=== PATIENT | male | born 1960 | race Caucasian/White ===

== ENCOUNTER → 2019-04-13 14:17 | Outpatient (CLI) | payer SELFPAY ==
--- NOTE | 2019-04-13 14:23 | US_ITS ---
PROCEDURE: US THYROID CLINICAL INDICATION: neck pain/pressure COMPARISON: No exams were available for comparison FINDINGS: Right lobe: 4.6 x 1.7 x 1.4 cm. Homogeneous echogenicity. 10 x 6 mm slightly hypoechoic nodules present in the lower pole Left lobe: 4.2 x 1.6 x 1.8 cm. Homogeneous echogenicity. There is a subtle 6 x 3 mm isoechoic nodule in the lower pole Isthmus: Unremarkable Additional findings: IMPRESSION: Mildly enlarged thyroid gland with small bilateral nodules which are probably benign. Suggest 6 month follow-up to confirm stability Dictated by: Fred Zarate MD 04/13/2019 16:00 Electronically signed by Fred Zarate MD in [facility] 04/13/2019 16:00
--- NOTE | 2019-04-13 14:23 | CT_ITS ---
PROCEDURE: CT SOFT TISSUE NECK WO/W CON CLINICAL HISTORY: throat/neck pain Or COMPARISON: Sore throat when swallowing TECHNIQUE: Oral Contrast: None IV Contrast: 75 mL Optiray 350 Axial images obtained with sagittal and coronal reformats. All CT scans at the facility use one or more dose reduction, viz: automated exposure control, ma/kV adjustment per patient size (including targeted exams where dose is matched to indication, i.e. head), or iterative reconstruction technique. FINDINGS: The nasopharynx, hypopharynx, and oral pharynx have an unremarkable appearance. Unremarkable appearing epiglottis and glottic region. No parapharyngeal mass. No neck mass or adenopathy. The parotid glands and submandibular glands have an unremarkable appearance. The no dominant adenopathy is evident. Unremarkable appearing paranasal sinuses. No mastoid effusion. The middle ears are well aerated. The thyroid gland has an unremarkable appearance. The TMJs are unremarkable. IMPRESSION: Negative CT of the neck without and with contrast. Dictated by: Fred Zarate MD 04/13/2019 15:36 Electronically signed by Fred Zarate MD in [facility] 04/13/2019 15:36
[2019-04-13 14:48] LABS: Basophils # 0.1 K/mm3 (0-0.2); Basophils % 0.5 % (0.1-2.0); Eosinophils # 0.2 K/mm3 (0.0-0.4); Eosinophils % 2.5 % (0.1-12.0); Hematocrit 44.5 % (42.0-52.0); Hemoglobin 14.3 g/dL (14.1-18.0); Lymphocytes # 2.6 K/mm3 (0.7-4.5); Lymphocytes % 29.2 % (10-50); Mean Corpuscular Hemoglobin 28.8 pg (27.0-31.2); Monocytes # 0.6 K/mm3 (0.1-1.0); Monocytes % 6.1 % (1.7-9.3); Neutrophils # 5.6 K/mm3 (1.8-7.8); Neutrophils % 61.7 % (37.0-80.0); Platelet Count 364 K/mm3 (142-424); Red Blood Count 4.95 M/mm3 (4.60-6.20); Red Cell Distribution Width 12.5 % (11.5-17.5)
[2019-04-13 14:49] LABS: Alanine Aminotransferase 24 U/L (12-78); Albumin Level 3.6 gm/dL (3.4-5.0); Albumin/Globulin Ratio 0.9 (1.1-1.8); Alkaline Phosphatase 94 U/L (46-116); Anion Gap 11.3 mEq/L (5-15); Aspartate Amino Transferase 10 U/L (15-37); Bilirubin,Total 0.2 mg/dL (0.2-1.0); Blood Urea Nitrogen 17 mg/dL (7-18); Calcium 8.6 mg/dL (8.5-10.1); Carbon Dioxide 29 mmol/L (21.0-32.0); Chloride 98 mmol/L (98-107); Creatinine,Serum 1.42 mg/dL (0.70-1.30); Estimated Glomerular Filt Rate 51 ml/min (>60); Free T4 (Free Thyroxine) 1.09 ng/dl (0.76-1.46); GFR (African American) 61 ML/MIN (>60); Globulin 3.8 gm/dl (1.3-3.2); Glucose 277 mg/dL (74-106); Potassium 4.3 mmoL/L (3.5-5.1); Sodium 134 mmol/L (136-145); Thyroid Stimulating Hormone 0.76 uIU/ml (0.358-3.740); Total Protein,Serum 7.4 gm/dL (6.4-8.2)
[2019-04-17 07:21] LABS: Calcitonin 7.8 pg/mL (0.0-8.4)
== END ==
PROVIDERS: Visit Provider Otolaryngology
DX: R07.0 Pain in throat (principal); G89.29 Other chronic pain
CPT/HCPCS: 36415; 70492; 76536; 80053; 82308; 84439; 84443; 85025; Q9967